=== PATIENT | male | born 1960 | race Caucasian/White ===

== ENCOUNTER → 2016-03-07 | Outpatient (CLI) | payer MEDICARE ==
[~2016-03-07] MED LIST: ALBUTEROL2.5 MG/3 M IH; ASPIRIN E.C. 8181 MG PO; AUGMENTIN 875-1 EAC1 PO; CHANTIX 1MG1 MG PO; CITALOPRAM40 MG PO; CLOPIDOGREL PO; DEMADEX 20MG20 M1 PO; FLEXERIL10 MG PO; LIPITOR 40MG TA40 MG PO; LOPRESSOR 225 MG/TAB PO; LYRICA75 MG PO; MS CONTIN30 MG PO; NEURONTIN300 M1 PO; NOVAPLUS DE100 MG/ML IM; PERCOCET 325 MG1 TA5 PO; PERCOCET 325 MG1 TAB PO; PREGABALIN; PRILOSEC 20MG20 MG PO; RT ALBUTEROL CC18 GM IH; SIMVASTATIN80 MG PO; ZYPREXA 5MG5 MG PO
[2016-03-07 12:20] VITALS: BP 137/84
== END ==
LOC: AMSURD 12:00
DX: C20 Malignant neoplasm of rectum (principal); E29.1 Testicular hypofunction; E78.5 Hyperlipidemia, unspecified; Z12.5 Encounter for screening for malignant neoplasm of prostate; I25.10 Atherosclerotic heart disease of native coronary artery without angina pectoris; R73.03 Prediabetes

== ENCOUNTER → 2016-11-02 | Outpatient (CLI) | payer MEDICARE ==
[2016-03-07 12:20] VITALS: BP 137/84
== END ==
LOC: LAB 16:25
DX: B18.2 Chronic viral hepatitis C (principal)

== ENCOUNTER → 2017-01-09 | Outpatient (CLI) | payer MEDICARE ==
[2016-03-07 12:20] VITALS: BP 137/84
== END ==
LOC: RAD 15:09
DX: M17.11 Unilateral primary osteoarthritis, right knee (principal); M25.761 Osteophyte, right knee; M17.12 Unilateral primary osteoarthritis, left knee

== ENCOUNTER → 2017-03-08 | Outpatient (CLI) | payer MEDICARE ==
[2016-03-07 12:20] VITALS: BP 137/84
[2017-03-08 11:41] LABS: EOS # 0.3 (0.04-0.40); EOS % 3.2 % (0.0-4.0); HEMATOCRIT 47.6 % (42.0-52.0); HEMOGLOBIN 15.1 g/dL (13.5-18.0); LYMPH# 3.2 (1.50-4.00); MEAN CELL VOLUME 88 fl (78-100); MEAN CORPUSCULAR HEMOGLOBIN 28 pg (27-31); MEAN CORPUSCULAR HGB CONC 32 g/dL (33-37); MEAN PLATELET VOLUME 9.8 fl (7.4-10.4); MONO # 0.9 (0.20-0.80); NEU # 3.9 (1.40-6.50); PLATELET COUNT 186 K/mm3 (130-400); RED BLOOD COUNT 5.42 M/mm3 (4.20-5.60); RED CELL DISTRIBUTION WIDTH 15.2 % (11.5-14.5); WHITE BLOOD COUNT 8.4 K/mm3 (4.8-10.8)
[2017-03-08 11:54] LABS: ALBUMIN 3.8 g/dL (3.5-5.0); BUN/CREATININE RATIO 20.1 (6.0-26.0); CALCIUM 8.7 mg/dL (8.4-10.2); POTASSIUM 3.9 mmol/L (3.6-5.0); TOTAL BILIRUBIN 0.8 mg/dL (0.2-1.3); TOTAL PROTEIN 7.3 g/dL (6.3-8.2)
[2017-03-08 12:11] LABS: URINE APPEARANCE CLEAR; URINE BILIRUBIN NEGATIVE (NEGATIVE); URINE BLOOD NEGATIVE (NEGATIVE); URINE COLOR YELLOW; URINE KETONE NEGATIVE (NEGATIVE); URINE LEUKOCYTE ESTERASE NEGATIVE (NEGATIVE); URINE MUCUS PRESENT (NOT PRESENT); URINE NITRATE NEGATIVE (NEGATIVE); URINE PROTEIN(semi-quant) NEGATIVE (NEGATIVE); URINE UROBILINOGEN 1 mg/dL (NORMAL); URINE WBC 0-1 /hpf (0-3)
[2017-03-08 13:00] LABS: ERYTHROCYTE SEDIMENTATION RATE 8 mm/hr (0-20)
[2017-03-08 23:47] LABS: TESTOSTERONE 511 ng/dL (221-716)
[2017-03-08 23:48] LABS: CARCINOEMBRYONIC ANTIGEN 1.3 ng/mL (0.0-5.0)
== END ==
LOC: LAB 11:28
PROVIDERS: Internal Medicine
DX: C20 Malignant neoplasm of rectum (principal); E29.1 Testicular hypofunction; E78.5 Hyperlipidemia, unspecified; R73.03 Prediabetes; Z12.5 Encounter for screening for malignant neoplasm of prostate; I25.10 Atherosclerotic heart disease of native coronary artery without angina pectoris; Z88.1 Allergy status to other antibiotic agents

== ENCOUNTER → 2017-07-26 | Outpatient (CLI) | payer MEDICARE ==
[2016-03-07 12:20] VITALS: BP 137/84
== END ==
LOC: RAD 13:50
DX: C20 Malignant neoplasm of rectum (principal); K76.0 Fatty (change of) liver, not elsewhere classified; N28.1 Cyst of kidney, acquired; N32.89 Other specified disorders of bladder; R19.8 Other specified symptoms and signs involving the digestive system and abdomen
CPT/HCPCS: Q9967

== ENCOUNTER → 2017-11-15 | Outpatient (CLI) | payer MEDICARE ==
[2016-03-07 12:20] VITALS: BP 137/84
[2017-11-15 12:09] LABS: ALBUMIN 3.9 g/dL (3.5-5.0); CALCIUM 9.2 mg/dL (8.4-10.2); POTASSIUM 4.3 mmol/L (3.6-5.0); TOTAL BILIRUBIN 0.5 mg/dL (0.2-1.3); TOTAL PROTEIN 7.5 g/dL (6.3-8.2)
[2017-11-15 13:24] LABS: EOS # 0.5 (0.04-0.40); EOS % 4.8 % (0.0-4.0); HEMATOCRIT 42.3 % (42.0-52.0); HEMOGLOBIN 14.1 g/dL (13.5-18.0); MEAN CELL VOLUME 91 fl (78-100); MEAN CORPUSCULAR HEMOGLOBIN 31 pg (27-31); MEAN CORPUSCULAR HGB CONC 33 g/dL (33-37); MEAN PLATELET VOLUME 10.6 fl (7.4-10.4); NEU # 5.2 (1.40-6.50); PLATELET COUNT 207 K/mm3 (130-400); RED BLOOD COUNT 4.63 M/mm3 (4.20-5.60); RED CELL DISTRIBUTION WIDTH 13.5 % (11.5-14.5); WHITE BLOOD COUNT 9.7 K/mm3 (4.8-10.8)
[2017-11-16 00:17] LABS: CARCINOEMBRYONIC ANTIGEN 2.1 ng/mL (0.0-5.0); TESTOSTERONE 99 ng/dL (221-716)
== END ==
LOC: LAB 11:21
PROVIDERS: Internal Medicine
DX: E78.5 Hyperlipidemia, unspecified (principal); R73.03 Prediabetes; C20 Malignant neoplasm of rectum; E29.1 Testicular hypofunction; B19.20 Unspecified viral hepatitis C without hepatic coma

== ENCOUNTER → 2018-03-07 | Outpatient (CLI) | payer MEDICARE ==
[2016-03-07 12:20] VITALS: BP 137/84
[2018-03-07 13:42] LABS: EOS # 0.4 (0.04-0.40); HEMATOCRIT 47.5 % (42.0-52.0); HEMOGLOBIN 15.7 g/dL (13.5-18.0); LYMPH# 2.4 (1.50-4.00); MEAN CELL VOLUME 92 fl (78-100); MEAN CORPUSCULAR HEMOGLOBIN 30 pg (27-31); MEAN CORPUSCULAR HGB CONC 33 g/dL (33-37); MEAN PLATELET VOLUME 10.3 fl (7.4-10.4); MONO # 0.7 (0.20-0.80); NEU # 4.1 (1.40-6.50); PLATELET COUNT 191 K/mm3 (130-400); RED BLOOD COUNT 5.16 M/mm3 (4.20-5.60); RED CELL DISTRIBUTION WIDTH 14.1 % (11.5-14.5); WHITE BLOOD COUNT 7.6 K/mm3 (4.8-10.8)
[2018-03-07 13:43] LABS: EOS % 5.5 % (0.0-4.0)
[2018-03-07 13:53] LABS: ALBUMIN 4.5 g/dL (3.5-5.0); POTASSIUM 4.3 mmol/L (3.6-5.0); TOTAL BILIRUBIN 1.3 mg/dL (0.2-1.3)
[2018-03-07 23:35] LABS: TESTOSTERONE 65 ng/dL (221-716)
== END ==
LOC: LAB 13:19
PROVIDERS: Internal Medicine
DX: I25.10 Atherosclerotic heart disease of native coronary artery without angina pectoris (principal); E11.9 Type 2 diabetes mellitus without complications; R80.9 Proteinuria, unspecified; E29.1 Testicular hypofunction

== ENCOUNTER → 2018-07-25 | Outpatient (CLI) | payer MEDICARE ==
[2016-03-07 12:20] VITALS: BP 137/84
[2018-07-25 16:14] LABS: HEMATOCRIT 44.1 % (42.0-52.0); HEMOGLOBIN 13.8 g/dL (13.5-18.0); LYMPH# 2.6 (1.50-4.00); MEAN CELL VOLUME 95 fl (78-100); MEAN CORPUSCULAR HEMOGLOBIN 30 pg (27-31); MEAN CORPUSCULAR HGB CONC 31 g/dL (33-37); MEAN PLATELET VOLUME 10.1 fl (7.4-10.4); MONO # 0.9 (0.20-0.80); NEU # 4.5 (1.40-6.50); PLATELET COUNT 247 K/mm3 (130-400); RED BLOOD COUNT 4.64 M/mm3 (4.20-5.60); RED CELL DISTRIBUTION WIDTH 15.7 % (11.5-14.5); WHITE BLOOD COUNT 8.8 K/mm3 (4.8-10.8)
[2018-07-25 16:32] LABS: ALBUMIN 3.6 g/dL (3.5-5.0); CALCIUM 9.1 mg/dL (8.3-10.5); POTASSIUM 4.2 mmol/L (3.5-5.1); TOTAL BILIRUBIN 0.5 mg/dL (0.2-1.2)
[2018-07-25 17:03] LABS: EOS # 0.8 (0.04-0.40); EOS % 8.6 % (0.0-4.0)
== END ==
LOC: LAB 15:57
PROVIDERS: Internal Medicine
DX: I25.10 Atherosclerotic heart disease of native coronary artery without angina pectoris (principal); E11.29 Type 2 diabetes mellitus with other diabetic kidney complication

== ENCOUNTER 2018-10-04 16:33 | Emergency (ER) | payer MEDICARE ==
[2018-10-04 17:20] LABS: EOS # 0.5 (0.04-0.40); HEMATOCRIT 51.5 % (42.0-52.0); HEMOGLOBIN 16.6 g/dL (13.5-18.0); LYMPH# 2.4 (1.50-4.00); MEAN CELL VOLUME 86 fl (78-100); MEAN CORPUSCULAR HEMOGLOBIN 28 pg (27-31); MEAN CORPUSCULAR HGB CONC 32 g/dL (33-37); MEAN PLATELET VOLUME 10.4 fl (7.4-10.4); MONO # 0.7 (0.20-0.80); NEU # 5.3 (1.40-6.50); PLATELET COUNT 357 K/mm3 (130-400); RED CELL DISTRIBUTION WIDTH 14.5 % (11.5-14.5); WHITE BLOOD COUNT 8.9 K/mm3 (4.8-10.8)
[2018-10-04 17:29] LABS: EOS % 5.5 % (0.0-4.0)
[2018-10-04 17:35] LABS: ALBUMIN 3.6 g/dL (3.5-5.0)
[2018-10-04 17:36] LABS: POTASSIUM 4.3 mmol/L (3.5-5.1)
[2018-10-04 17:37] LABS: CALCIUM 9.4 mg/dL (8.3-10.5)
[2018-10-04 17:38] LABS: TOTAL PROTEIN 8.6 g/dL (6.4-8.3)
[2018-10-04 17:40] LABS: TOTAL BILIRUBIN 0.8 mg/dL (0.2-1.2)
[2018-10-04 19:02] VITALS: BP 133/84
[2018-10-04] MEDS ORDERED: NITROSTAT0.4 M1 SL (19:06)
[2018-10-04] MEDS ORDERED: OLANZAPINE5 M3 PO (19:07)
[2018-10-04] MEDS ORDERED: COZAAR100 MG PO (19:08)
[2018-10-04] MEDS ORDERED: CHANTIX 1MG1 MG (19:10)
[2018-10-04] MEDS ORDERED: WELLBUTRIN XL150 M2 PO (19:10)
[2018-10-04] MEDS ORDERED: DEMADEX 20MG20 M1 PO (19:11)
== END 2018-10-04 19:27 | disposition other institution (70) ==
LOC: ED 16:33
PROVIDERS: Nurse Practitioner Primary Care
DX: R07.89 Other chest pain (principal)
CPT/HCPCS: A4216; J0696; J2270

== ENCOUNTER 2018-10-04 19:01 | Inpatient (IN) | payer MEDICARE ==
[~2018-10-04] VITALS: Ht 170.2 cm; Wt 93.9 kg
[2018-10-04] MEDS ORDERED: NITROSTAT0.4 M1 SL (19:06)
[2018-10-04] MEDS ORDERED: OLANZAPINE5 M3 PO (19:07)
[2018-10-04] MEDS ORDERED: COZAAR100 MG PO (19:08)
[2018-10-04] MEDS ORDERED: WELLBUTRIN XL150 M2 PO (19:10)
[2018-10-04] MEDS ORDERED: CHANTIX 1MG1 MG (19:10)
[2018-10-04] MEDS ORDERED: DEMADEX 20MG20 M1 PO (19:11)
[2018-10-04 19:53] VITALS: BP 134/83
[2018-10-04 22:49] VITALS: BP 126/77
[2018-10-05 03:17] VITALS: BP 122/75
[2018-10-05 06:22] VITALS: BP 121/76
[2018-10-05 11:17] VITALS: BP 118/75
[2018-10-05 14:55] VITALS: BP 123/73
[2018-10-05 18:16] VITALS: BP 112/68
[2018-10-05 22:44] VITALS: BP 100/61
[2018-10-06 02:47] VITALS: BP 108/58
[2018-10-06 06:19] VITALS: BP 113/71
[2018-10-06 11:06] VITALS: BP 112/69
[2018-10-06 14:51] LABS: EOS # 0.5 (0.04-0.40); HEMATOCRIT 47.5 % (42.0-52.0); HEMOGLOBIN 15.3 g/dL (13.5-18.0); LYMPH# 2.5 (1.50-4.00); MEAN CELL VOLUME 88 fl (78-100); MEAN CORPUSCULAR HEMOGLOBIN 28 pg (27-31); MEAN CORPUSCULAR HGB CONC 32 g/dL (33-37); MEAN PLATELET VOLUME 10.1 fl (7.4-10.4); MONO # 0.9 (0.20-0.80); NEU # 5.3 (1.40-6.50); PLATELET COUNT 347 K/mm3 (130-400); RED BLOOD COUNT 5.41 M/mm3 (4.20-5.60); RED CELL DISTRIBUTION WIDTH 14.2 % (11.5-14.5); WHITE BLOOD COUNT 9.2 K/mm3 (4.8-10.8)
[2018-10-06 15:00] LABS: EOS % 5.7 % (0.0-4.0)
[2018-10-06 15:12] LABS: POTASSIUM 4.1 mmol/L (3.5-5.1)
[2018-10-06 15:13] LABS: CALCIUM 8.8 mg/dL (8.3-10.5)
[2018-10-06 15:27] VITALS: BP 109/63
[2018-10-06 18:27] VITALS: BP 126/68
[2018-10-06 22:58] VITALS: BP 133/72
[2018-10-07 03:00] VITALS: BP 107/62
[2018-10-07 06:11] VITALS: BP 123/73
[2018-10-07 11:37] VITALS: BP 115/69
[2018-10-07 12:59] LABS: EOS # 0.4 (0.04-0.40); EOS % 4.4 % (0.0-4.0); HEMATOCRIT 48.1 % (42.0-52.0); HEMOGLOBIN 15.4 g/dL (13.5-18.0); LYMPH# 2.3 (1.50-4.00); MEAN CELL VOLUME 88 fl (78-100); MEAN CORPUSCULAR HEMOGLOBIN 28 pg (27-31); MEAN CORPUSCULAR HGB CONC 32 g/dL (33-37); MEAN PLATELET VOLUME 10.1 fl (7.4-10.4); MONO # 0.7 (0.20-0.80); NEU # 6.2 (1.40-6.50); PLATELET COUNT 316 K/mm3 (130-400); RED BLOOD COUNT 5.47 M/mm3 (4.20-5.60); RED CELL DISTRIBUTION WIDTH 14.4 % (11.5-14.5); WHITE BLOOD COUNT 9.7 K/mm3 (4.8-10.8)
[2018-10-07 13:11] LABS: POTASSIUM 4.4 mmol/L (3.5-5.1)
[2018-10-07 13:12] LABS: CALCIUM 9.1 mg/dL (8.3-10.5)
[2018-10-07 15:25] VITALS: BP 119/66
[2018-10-07 18:38] VITALS: BP 118/69
[2018-10-07 22:31] VITALS: BP 130/72
[2018-10-08 02:42] VITALS: BP 106/62
[2018-10-08 06:20] VITALS: BP 131/70
[2018-10-08 11:14] VITALS: BP 109/58
[2018-10-08 15:07] VITALS: BP 101/59
[2018-10-08] MEDS ORDERED: DOXYCYCLINE HYC50 M1 PO (15:30)
[2018-10-08] MEDS ORDERED: ALBUTEROL S5 MG/1 ML IH (15:31)
[2018-10-08] MEDS ORDERED: IPRATROPIUM BROM3 M1 IH (15:31)
[2018-10-08] MEDS ORDERED: PREDNISONE20 M1 PO (15:32)
[2018-10-08 18:00] VITALS: BP 122/65
== END 2018-10-08 18:07 | disposition home health service (06) | DRG 195 ==
LOC: MED/SURG 19:01
PROVIDERS: Nurse Practitioner Primary Care; ADMIT Family Medicine
DX: J18.1 Lobar pneumonia, unspecified organism (principal); J44.9 Chronic obstructive pulmonary disease, unspecified; I25.10 Atherosclerotic heart disease of native coronary artery without angina pectoris; M47.9 Spondylosis, unspecified; R09.02 Hypoxemia; J84.10 Pulmonary fibrosis, unspecified; R07.89 Other chest pain; Z95.5 Presence of coronary angioplasty implant and graft; Z85.038 Personal history of other malignant neoplasm of large intestine; F17.210 Nicotine dependence, cigarettes, uncomplicated
CPT/HCPCS: A4216; J0696; J1650; J2930; Q9967

== ENCOUNTER → 2018-10-16 | Outpatient (CLI) | payer MEDICARE ==
[2018-10-08 18:00] VITALS: BP 122/65
[~2018-10-16] MED LIST changes: +ALBUTEROL S5 MG/1 ML IH; +CHANTIX 1MG1 MG; +COZAAR100 MG PO; +DOXYCYCLINE HYC50 M1 PO; +IPRATROPIUM BROM3 M1 IH; +NITROSTAT0.4 M1 SL; +OLANZAPINE5 M3 PO; +PREDNISONE20 M1 PO; +WELLBUTRIN XL150 M2 PO
[2018-10-16 11:44] LABS: HEMATOCRIT 47.7 % (42.0-52.0); HEMOGLOBIN 15.6 g/dL (13.5-18.0); MEAN CELL VOLUME 86 fl (78-100); MEAN CORPUSCULAR HEMOGLOBIN 28 pg (27-31); MEAN CORPUSCULAR HGB CONC 33 g/dL (33-37); MEAN PLATELET VOLUME 10.6 fl (7.4-10.4); PLATELET COUNT 252 K/mm3 (130-400); RED BLOOD COUNT 5.56 M/mm3 (4.20-5.60); RED CELL DISTRIBUTION WIDTH 14.8 % (11.5-14.5); WHITE BLOOD COUNT 15.2 K/mm3 (4.8-10.8)
[2018-10-16 11:49] LABS: ALBUMIN 3.4 g/dL (3.5-5.0); POTASSIUM 4.3 mmol/L (3.5-5.1)
[2018-10-16 11:50] LABS: CALCIUM 8.9 mg/dL (8.3-10.5)
[2018-10-16 11:52] LABS: TOTAL PROTEIN 6.8 g/dL (6.4-8.3)
[2018-10-16 11:54] LABS: TOTAL BILIRUBIN 0.5 mg/dL (0.2-1.2)
[2018-10-16 12:00] LABS: NEUTROPHILS 81 % (42-75)
[2018-10-16 12:01] LABS: LYMPHOCYTE 12 % (20-51); MONOCYTE 3 % (3-10)
[2018-10-16 12:42] LABS: ERYTHROCYTE SEDIMENTATION RATE 17 mm/hr (0-20)
== END ==
LOC: RAD 11:29
PROVIDERS: Internal Medicine
DX: R91.8 Other nonspecific abnormal finding of lung field (principal); I25.10 Atherosclerotic heart disease of native coronary artery without angina pectoris; R80.8 Other proteinuria; J18.9 Pneumonia, unspecified organism

== ENCOUNTER 2018-10-24 14:46 | Emergency (ER) | payer MEDICARE ==
[~2018-10-24] VITALS: Wt 100.0 kg
[~2018-10-24 14:46] MED LIST changes: +CYCLOBENZAPRINE10 M1 PO; -FLEXERIL10 MG PO
[2018-10-24 15:26] LABS: EOS # 0.2 (0.04-0.40); HEMATOCRIT 42.2 % (42.0-52.0); HEMOGLOBIN 13.6 g/dL (13.5-18.0); LYMPH# 1.9 (1.50-4.00); MEAN CELL VOLUME 87 fl (78-100); MEAN CORPUSCULAR HEMOGLOBIN 28 pg (27-31); MEAN CORPUSCULAR HGB CONC 32 g/dL (33-37); MEAN PLATELET VOLUME 10.3 fl (7.4-10.4); MONO # 0.8 (0.20-0.80); NEU # 8.8 (1.40-6.50); PLATELET COUNT 160 K/mm3 (130-400); RED BLOOD COUNT 4.88 M/mm3 (4.20-5.60); RED CELL DISTRIBUTION WIDTH 15.9 % (11.5-14.5); WHITE BLOOD COUNT 11.9 K/mm3 (4.8-10.8)
[2018-10-24 15:36] LABS: ALBUMIN 2.9 g/dL (3.5-5.0); POTASSIUM 3.9 mmol/L (3.5-5.1); SODIUM 139 mmol/L (136-145)
[2018-10-24 15:37] LABS: CALCIUM 8.5 mg/dL (8.3-10.5)
[2018-10-24 15:39] LABS: GLUCOSE 167 mg/dL (75-110)
[2018-10-24 15:40] LABS: CARBON DIOXIDE 26 mmol/L (22-29); TOTAL BILIRUBIN 2.3 mg/dL (0.2-1.2)
[2018-10-24 15:44] LABS: AST-SGOT 28 U/L (5-34)
[2018-10-24 15:45] LABS: ALT/SGPT 49 U/L (0-55)
[2018-10-24 15:51] LABS: TROPONIN-I < 0.03 ng/mL (<0.030)
[2018-10-24 15:53] LABS: D-DIMER 1.24 mg/L FEU (0.15-0.50)
[2018-10-24 19:11] VITALS: BP 78/45
== END 2018-10-24 18:56 | disposition short-term general hospital (02) ==
LOC: ED 14:46
PROVIDERS: Nurse Practitioner Family
DX: J44.1 Chronic obstructive pulmonary disease with (acute) exacerbation (principal); R06.03 Acute respiratory distress; I50.9 Heart failure, unspecified; J84.9 Interstitial pulmonary disease, unspecified; I95.9 Hypotension, unspecified; I25.10 Atherosclerotic heart disease of native coronary artery without angina pectoris; E78.5 Hyperlipidemia, unspecified; F41.9 Anxiety disorder, unspecified; Z95.5 Presence of coronary angioplasty implant and graft; Z95.0 Presence of cardiac pacemaker; Z79.02 Long term (current) use of antithrombotics/antiplatelets; Z87.891 Personal history of nicotine dependence
CPT/HCPCS: J0696; J1265; J2930; J7030; Q9967